=== PATIENT | female | born 1950 | race Caucasian/White ===

== ENCOUNTER 2023-11-29 09:08 | Emergency (ER) | payer MEDICARE, OTHER ==
[2023-11-29 09:12] VITALS: BP 147/68; PULSE 81
== END 2023-11-29 10:02 | disposition home or self-care (01) ==
LOC: CC.ED 09:08
DX: S52.502A Unspecified fracture of the lower end of left radius, initial encounter for closed fracture (principal); W01.0XXA Fall on same level from slipping, tripping and stumbling without subsequent striking against object, initial encounter
CPT/HCPCS: 73110-LT; 99283